=== PATIENT | male | born 1960 | race Caucasian/White ===

== ENCOUNTER 2018-02-14 11:33 | Emergency (ER) | payer MEDICAID, OTHER ==
[2018-02-14 12:03] VITALS: BP 128/80
--- NOTE | 2018-02-14 13:47 | UC ---
Elbow Pain - HPI Summary HPI Summary: OVER ONE MONTH OF PAIN IN THE RIGHT ELBOW. 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 SYMPTOMS ARE WORSENED BY THIS ACTIVITY. HAS AN APPOINTMENT WITH HIS PCP NEXT WEEK BUT PAIN IS JUST GETTING WORSE. HE DENIES ANY DISCRETE TRAUMA. - History of Current Complaint Chief Complaint: UCUpperExtremity Stated Complaint: LOWER ARM PAIN Time Seen by Provider: 02/14/18 13:19 Hx Obtained From: Patient Onset/Duration: Weeks, Still Present Severity Initially: Moderate Severity Currently: Moderate Pain Intensity: 6 Pain Scale Used: 0-10 Numeric Location Of Pain: Is Discrete @ - RIGHT ELBOW Aggravating Factor(s): Movement, Twisting Alleviating Factor(s): Rest Associated Signs And Symptoms: Negative: Numbness/Tingling - Allergies/Home Medications Allergies/Adverse Reactions: Allergies Allergy/AdvReac Type Severity Reaction Status Date / Time Adhesive Tape Allergy Rash Verified 02/14/18 12:02 codeine Allergy Rash Verified 02/14/18 12:02 meperidine [From Demerol] Allergy Nausea And Verified 02/14/18 12:02 Vomiting Penicillins Allergy Rash Verified 02/14/18 12:02 Home Medications: Home Medications DULoxetine DR CAP* [Cymbalta CAP*] 30 mg PO DAILY 02/14/18 [History Confirmed ] PMH/Surg Hx/FS Hx/Imm Hx Cardiovascular History: Hypertension - Surgical History Surgical History: Yes Surgery Procedure, Year, and Place: APPENDECTOMY . L5S1 DISCECTOMY 1995 [place]. L5S1 FUSION 1997 STRONG. NEUROSTIMULATOR IMPLANT [facility] [place] 1999. STIMULATOR BATTERY CHANGE 2008,2012 [facility] [place]. VICTOR M LY AL 2013 - Family History Known Family History: Positive: Hypertension - Social History Alcohol Use: None Substance Use Type: None Smoking Status (MU): Heavy Every Day Tobacco Smoker Type: Cigarettes Amount Used/How Often: 1/2-1 PPD Length of Time of Smoking/Using Tobacco: 8 YRS Have You Smoked in the Last Year: Yes Review of Systems Constitutional: Negative Skin: Negative Respiratory: Negative Cardiovascular: Negative Gastrointestinal: Negative Musculoskeletal: Arthralgia All Other Systems Reviewed And Are Negative: Yes Physical Exam Triage Information Reviewed: Yes Appearance: Well-Appearing, No Pain Distress, Well-Nourished Vital Signs: Initial Vital Signs Temp 98.5 F 02/14/18 12:00 Pulse 103 02/14/18 12:00 Resp 18 02/14/18 12:00 BP 128/80 02/14/18 12:00 Pulse Ox 98 02/14/18 12:00 Vital Signs Reviewed: Yes Eyes: Positive: Conjunctiva Clear ENT: Positive: Hearing grossly normal Neck: Positive: Supple Respiratory: Positive: No respiratory distress, No accessory muscle use Cardiovascular: Positive: Pulses Normal Abdomen Description: Positive: Soft Musculoskeletal: Positive: ROM Intact, No Edema, Other: - TTP RIGHT LATERAL EPICONDYLE. WORSE WITH SUPINATION AGAINST RESISTANCE AND WRIST EXTENSION Neurological: Positive: Alert Psychological: Positive: Age Appropriate Behavior Skin: Negative: rashes Elbow Pain Course/Dx - Differential Dx/Diagnosis Provider Diagnoses: RIGHT LATERAL EPICONDYLITIS Discharge - Sign-Out/Discharge Documenting (check all that apply): Patient Departure - Discharge Plan Condition: Stable Disposition: HOME Patient Education Materials: Tennis Elbow (ED) Forms: *Work Release Referrals: Jeremy Tay NP [Primary Care Provider] - If Needed Sonali Montaño MD [Medical Doctor] - 2 Weeks Additional Instructions: TENNIS ELBOW/GOLFER'S ELBOW What is elbow tendinopathy? Elbow tendinopathy is a condition that causes elbow pain and forearm weakness. Doctors use the term "elbow tendinopathy" when people have a problem with a tendon in the elbow. Tendons are strong bands of tissue that connect muscles to bones. Depending on which elbow tendon is injured , the condition is also known as "tennis elbow" or "golf elbow." In most people with elbow tendinopathy, the tendons are not inflamed or swollen. If they do get inflamed or swollen, doctors call it "tendinitis." Tendinitis usually starts suddenly. Tendinopathy usually happens over a longer period of time. What causes elbow tendinopathy? This condition can happen as people get older , especially if they do a lot of work or activity using their elbow and forearm. Tendinitis can happen when people get hurt or do the same movements over and over. What are the symptoms of elbow tendinopathy? The most common symptoms are: -Elbow pain The pain can start slowly or suddenly. It can spread to the upper arm or forearm. -Weakness of the forearm muscles -Swelling (if people have tendinitis) Is there a test for elbow tendinopathy? No. But your doctor or nurse should be able to tell if you have it by talking with you and doing an exam. How is elbow tendinopathy treated? Most of the time, this condition will get better on its own, but it can take months to heal completely. To help get better , you can: -Rest your elbow and arm - Ask your doctor about wearing an arm brace. -Take a pain-relieving medicine - Your doctor might recommend that you take a medicine such as acetaminophen (sample brand name: Tylenol), ibuprofen (sample brand names: Advil, Motrin), or naproxen (sample brand names: Aleve, Naprosyn). Is there anything I can do on my own to feel better? Yes. You can do different exercises to help with your symptoms. The right exercises for you will depend on which elbow tendon is injured. The following exercises can help stretch the lower arm muscles: -Tennis elbow stretch Hold your injured arm straight out, and point your fingers down to the ground. Use your other hand (with the thumb pressing on the palm) to grab this hand. Then press down on the back of the hand to bend the wrist more (picture 1). Hold this position for 30 seconds. Repeat the stretch 3 times. Do this exercise 1 time a day. -Golf elbow stretch Stand an arm's length away from the wall, with the injured arm closest to the wall. Put your palm on the wall, with your fingers pointing down. Press gently against the wall to stretch your muscles. Hold this position for 30 seconds. Repeat the stretch 3 times. Do this exercise 1 time a day. Other types of exercises can help make the forearm muscles stronger. Your doctor , nurse, or physical therapist (exercise expert) can show you how to do these types of exercises. He or she will tell you when to start them and how often to do them. What if my symptoms don't get better? If your symptoms don't get better, talk with your doctor or nurse. He or she can suggest other treatments, such as physical therapy or a shot of medicine in the tendon. GET A COUNTERFORCE BRACE AND REST YOUR ARM MUCH POSSIBLE. FOLLOW-UP WITH ORTHO TO DISCUSS FURTHER TREATMENT OPTIONS. - Billing Disposition and Condition Condition: STABLE Disposition: Home
== END 2018-02-14 13:50 | disposition home or self-care (01) ==
LOC: UCEAST 11:33
DX: M77.11 Lateral epicondylitis, right elbow (principal); Z88.5 Allergy status to narcotic agent; Z88.0 Allergy status to penicillin; Z91.048 Other nonmedicinal substance allergy status; F17.210 Nicotine dependence, cigarettes, uncomplicated
CPT/HCPCS: 99211; G0463

== ENCOUNTER 2022-05-20 08:30 | Inpatient (IN) ==
[~2022-05-20 08:30] MED LIST: Acetaminophen IV 1 GM/100ML 1,000 MG/100 ML BAG IV ONE; Buffered Lidocaine 1% SYRIN 1 ml INTRADERM ONE; Dexamethasone IV 4 MG/ML VIAL 1 ml VIAL ONE; Lactated Ringers 1000 ml BAG 1,000 ML IV SCH; Midazolam 5 mg/5 ml VIAL 1 mg/ml 5 ml VIAL (5 mg) ONE; Ondansetron 4 mg VIAL 2 MG/ML 2 ml VIAL ONE; Phenylephrine IV 10 MG/ML 1 ml VIAL ONE; Propofol 10 mg/ml 100 ML BTL 100 ML ONE; fentaNYL 100 mcg/2 ml 50 MCG/ML VIAL ONE
[2022-05-20] MEDS ORDERED: Clindamycin 900 MG/D5W BAG 0 MG/0 ML BAG IVPB ONE (12:45)
[2022-05-20] MEDS ORDERED: Propofol 10 MG/ML 20 ML BTL ONE (13:35)
[2022-05-20] MEDS ORDERED: Lidocaine 2% PF 5 ML VIAL ONE (13:35)
[2022-05-20] MEDS ORDERED: Dexamethasone IV 4 MG/ML VIAL 1 ml VIAL ONE (13:35)
[2022-05-20] MEDS ORDERED: Clindamycin 900 MG/D5W BAG 900 MG/50 ML BAG IVPB ONE (13:49)
[2022-05-20] MEDS ORDERED: ROPIVACAINE 5 MG/ML 30 ML BTL (0.5%) ONE ×2 (14:49→16:16)
[2022-05-20] MEDS ORDERED: Naloxone 0.4 mg VIAL 0.4 mg/ml 1 ml VIAL IV PRN (15:09)
[2022-05-20] MEDS ORDERED: fentaNYL 100 mcg/2 ml 50 MCG/ML VIAL IV PRN (15:09)
[2022-05-20] MEDS ORDERED: Ondansetron 4 mg VIAL 2 MG/ML 2 ml VIAL IV PRN ×2 (15:09→16:36)
[2022-05-20] MEDS ORDERED: HYDROmorphone 0.5 MG/0.5 ML SYRINGE ONE ×2 (15:35→15:56)
[2022-05-20] MEDS ORDERED: Rocuronium 50 mg VIAL 10 mg/ml 5 ml VIAL (50 mg) ONE (16:15)
[2022-05-20] MEDS ORDERED: fentaNYL 100 mcg/2 ml 50 MCG/ML VIAL ONE ×2 (16:19→16:31)
[2022-05-20] MEDS ORDERED: Lactulose 30 ml UDC PO PRN (16:36)
[2022-05-20] MEDS ORDERED: Morphine 2 MG/ML SYRINGE IV PRN (16:36)
[2022-05-20] MEDS ORDERED: Ondansetron ODT 4 mg TAB 4 MG TAB PO PRN (16:36)
[2022-05-20] MEDS ORDERED: Magnesium Hydroxide LIQ 30 ML UDC PO PRN (16:36)
[2022-05-20] MEDS ORDERED: Lactated Ringers 1000 ml BAG 1,000 ML IV SCH (17:00)
[2022-05-20] MEDS ORDERED: Metoprolol Tartrate 5 mg VIAL 5 ml VIAL (1 mg/ml) ONE ×4 (18:00→19:09)
[2022-05-20] MEDS ORDERED: Albuterol 2.5mg/3 ml (0.083%) NEB.SOLN INH ONE ×2 (21:35→21:38)
[2022-05-20] MEDS ORDERED: Albuterol HFA INHALER 8 gm MDI INH PRN (22:05)
[2022-05-20] MEDS: Magnesium Hydroxide LIQ 30 ML UDC PO SCH (23:21)
[2022-05-20] MEDS: Clindamycin 600 MG/D5W BAG 600 MG/50 ML BAG IV SCH (23:54)
[2022-05-21 06:35] LABS: Hematocrit 37 % (42-52); Hemoglobin 12.1 g/dL (14.0-18.0); Mean Platelet Volume 6.9 fL (7.4-10.4); Platelet Count 382 10^3/uL (150-450)
[2022-05-21 07:00] LABS: Calcium 8.3 mg/dL (8.6-10.3); eGFR CKD-EPI 73.6 (>60)
[2022-05-21 07:05] LABS: Potassium 5.1 mmol/L (3.5-5.0)
[2022-05-21] MEDS: Clindamycin 600 MG/D5W BAG 600 MG/50 ML BAG IV SCH ×2 (08:19→14:14)
[2022-05-21] MEDS: Magnesium Hydroxide LIQ 30 ML UDC PO SCH (08:20)
[2022-05-21] MEDS ORDERED: DULoxetine DR 60 mg CAP PO SCH (09:00)
[2022-05-21] MEDS ORDERED: SPIRIVA Respimat (tiotropium) 2.5 mcg/inh Inhaler INH SCH (09:00)
[2022-05-21] MEDS ORDERED: Vitamin THERAPEUTIC TAB PO SCH (09:00)
[2022-05-21 11:21] VITALS: BP 119/63
== END 2022-05-21 14:50 | disposition home health service (06) | DRG 301 ==
LOC: AA 13:33 → SSU 22:43
PROVIDERS: ADMIT Orthopaedic Surgery Adult Reconstructive Orthopaedic Surgery; ATTEND Orthopaedic Surgery Adult Reconstructive Orthopaedic Surgery

== ENCOUNTER 2023-08-14 05:50 | Observation (INO) ==
[2023-08-14] MEDS ORDERED: ceFAZolin 2 GM in NS PREMIX 2 GM/100 ML BAG IVPB ONE (06:21)
[2023-08-14] MEDS ORDERED: Chlorhexidine MOUTHWASH 0.12% 15 ML UDC ONE (06:21)
[2023-08-14 06:30] LABS: Rapid COVID-19 Molecular Undetected (Undetected)
[2023-08-14] MEDS: Lactated Ringers 1000 ml BAG 1,000 ML IV SCH ×2 (06:39→10:17)
[2023-08-14] MEDS ORDERED: ceFAZolin VIAL VIAL ONE (06:44)
[2023-08-14] MEDS ORDERED: Thrombin 5,000 UNITS(BOVINE) for Ultrasound Guided Pseudoaneursym ONE (06:44)
[2023-08-14] MEDS ORDERED: Lidocaine 1% w EPI 1:100,000 MDV 20 ML VIAL ONE (06:44)
[2023-08-14] MEDS ORDERED: Gelfoam Sponge SIZE 100 SPONGE ONE (06:45)
[2023-08-14] MEDS ORDERED: Ondansetron 4 mg VIAL 2 MG/ML 2 ml VIAL ONE (07:01)
[2023-08-14] MEDS ORDERED: Lidocaine 2% PF 5 ML VIAL ONE (07:01)
[2023-08-14] MEDS ORDERED: fentaNYL 250 mcg/5 ml 50 MCG/ML 5 ml VIAL (250 MCG) ONE (07:01)
[2023-08-14] MEDS ORDERED: Rocuronium 50 mg VIAL 10 mg/ml 5 ml VIAL (50 mg) ONE ×2 (07:01→08:14)
[2023-08-14] MEDS ORDERED: Propofol 10 MG/ML 20 ML BTL ONE (07:01)
[2023-08-14] MEDS ORDERED: Dexamethasone IV 4 MG/ML VIAL 1 ml VIAL ONE (07:01)
[2023-08-14] MEDS ORDERED: Midazolam 2 mg/2 ml VIAL 1 mg/ml 2 ml VIAL (2 mg) ONE (07:01)
[2023-08-14] MEDS ORDERED: Naloxone 0.4 mg VIAL 0.4 mg/ml 1 ml VIAL IV PRN (07:23)
[2023-08-14] MEDS ORDERED: Ondansetron 4 mg VIAL 2 MG/ML 2 ml VIAL IV PRN ×2 (07:23→08:44)
[2023-08-14] MEDS ORDERED: fentaNYL 100 mcg/2 ml 50 MCG/ML VIAL IV PRN (07:23)
[2023-08-14] MEDS ORDERED: fentaNYL 100 mcg/2 ml 50 MCG/ML VIAL ONE (08:17)
[2023-08-14] MEDS ORDERED: Phenylephrine 40 mcg/mL 10mL (400mcg) SYRINGE ONE (08:23)
[2023-08-14] MEDS ORDERED: Benzocaine/Menthol LOZ MT PRN (08:44)
[2023-08-14] MEDS ORDERED: Magnesium Hydroxide LIQ 30 ML UDC PO PRN (08:44)
[2023-08-14] MEDS ORDERED: Senna TAB 8.6 mg TAB PO PRN (08:44)
[2023-08-14] MEDS ORDERED: Phenol 1.4% Throat Spray BTL MT PRN (08:44)
[2023-08-14] MEDS ORDERED: Dextran 70/Hypromellose Tears Eye Drops 15 ml BTL (for Artificials Tears) BOTH EYES PRN (08:44)
[2023-08-14] MEDS ORDERED: Calcium Carb (TUMS) 500 mg CHEW TAB PO PRN (08:44)
[2023-08-14] MEDS ORDERED: Albuterol HFA INHALER 8 gm MDI INH PRN (08:47)
[2023-08-14] MEDS: Buffered Lidocaine 1% SYRIN 1 ml INTRADERM ONE (10:07)
[2023-08-14] MEDS: BUDESONIDE/GLYCOPYR/FORMOTEROL MDI (NF) INH SCH (11:20)
[2023-08-15 09:54] VITALS: BP 123/75
== END 2023-08-15 10:28 | disposition home or self-care (01) ==
LOC: OR 05:50 → SSU 05:50
PROVIDERS: ADMIT Neurological Surgery; ATTEND Neurological Surgery
PROC: O.NEPCD (2023-08-14 07:30)